=== PATIENT | female | born 2000 | race Caucasian/White ===

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

== ENCOUNTER 2018-01-11 13:38 | Emergency (ER) | payer BC ==
[2018-01-11 14:25] VITALS: BP 106/65
--- NOTE | 2018-01-11 15:29 | UC ---
Throat Pain/Nasal Isidro HPI - HPI Summary HPI Summary: 17-year-old female presents with 3 day history of sore throat. Associated with some mild nasal congestion and nausea. Denies fever, chills, dysphagia, ear pain or drainage, chest pain, shortness of breath, abdominal pain, or vomiting. - History of Current Complaint Chief Complaint: UCRespiratory Stated Complaint: SORE THROAT FEVER CHILLS Time Seen by Provider: 01/11/18 15:22 Hx Obtained From: Patient Hx Last Menstrual Period: 04/02/17 Onset/Duration: Gradual Onset, Lasting Days - 3 Severity: Moderate Pain Intensity: 8 Cough: None Associated Signs & Symptoms: Positive: Nasal Discharge. Negative: Dysphagia, Drooling, Hoarseness, Sinus Discomfort, Fever, Vomiting, Rash - Allergies/Home Medications Allergies/Adverse Reactions: Allergies Allergy/AdvReac Type Severity Reaction Status Date / Time No Known Allergies Allergy Verified 01/11/18 14:25 PMH/Surg Hx/FS Hx/Imm Hx Previously Healthy: Yes - Denies significant PMH - Surgical History Surgical History: None - Family History Known Family History: Positive: Hypertension - Social History Occupation: Student Lives: Dormitory/Roommates Alcohol Use: Occasionally Substance Use Type: None Smoking Status (MU): Never Smoked Tobacco - Immunization History Vaccination Up to Date: Yes Review of Systems Constitutional: Negative Skin: Negative Eyes: Negative ENT: Sore Throat, Nasal Discharge Respiratory: Negative Cardiovascular: Negative Gastrointestinal: Nausea Is Patient Immunocompromised?: No All Other Systems Reviewed And Are Negative: Yes Physical Exam Triage Information Reviewed: Yes Appearance: No Pain Distress, Well-Nourished Vital Signs: Initial Vital Signs Temp 98.7 F 01/11/18 14:21 Pulse 84 01/11/18 14:21 Resp 18 01/11/18 14:21 BP 106/65 01/11/18 14:21 Pulse Ox 99 01/11/18 14:21 Eyes: Positive: Conjunctiva Clear. Negative: Discharge ENT: Positive: Hearing grossly normal, Pharyngeal erythema, Nasal congestion, TMs normal, Tonsillar swelling, Tonsillar exudate, Uvula midline. Negative: Nasal drainage, Trismus, Muffled voice, Sinus tenderness Neck: Positive: Supple, Nontender, Enlarged Nodes @ - anterior cervical Respiratory: Positive: Lungs clear, Normal breath sounds, No respiratory distress Cardiovascular: Positive: RRR, No Murmur Neurological: Positive: Alert Skin Exam: Normal Diagnostics - Laboratory Diagnostic Studies Completed/Ordered: Positive rapid strep Throat Pain/Nasal Course/Dx - Course Course Of Treatment: 17 year old female with 3 day history of sore throat. Exam reveals pharyngeal erythema, tonsillar edema and exudate with anterior cervical lymphadenopathy. Rapid strep positive. Will treat with 10 day course Penicillin VK 500 mg BID and symptomatic care. Warning symptoms reviewed with patient. Verbalizes understanding and agrees with POC. - Differential Dx/Diagnosis Provider Diagnoses: Strep pharyngitis Discharge - Sign-Out/Discharge Documenting (check all that apply): Patient Departure All imaging exams completed and their final reports reviewed: No Studies - Discharge Plan Condition: Stable Disposition: HOME Prescriptions: Penicillin V Potassium 500 mg PO BID #20 tablet Patient Education Materials: Strep Throat (ED) Forms: *School Release Referrals: Radu Trivedi, SUB ACUTE CARE NURSE [Primary Care Provider] - (If symptoms perist) Additional Instructions: Your rapid strep test was performed in the clinic today was positive. Take penicillin VK 1 tablet twice a day for 10 days. Be sure to finish the entire course even if you're feeling better. Use salt water gargles several times a day. Use acetaminophen (Tylenol) or ibuprofen (Advil, Motrin) according to directions as needed for pain or fever. You may use Chloraseptic spray or Cepacol lozenges for some temporary pain relief. After you've been on your antibiotics for 2-3 days change out her toothbrush to avoid reinfection. Follow-up with your primary care provider if her symptoms persist. Seek immediate medical attention if you have a persistent fever greater than 100.5 F despite taking acetaminophen or ibuprofen, you are unable to swallow, Difficulty breathing, or any worsening of symptoms. - Billing Disposition and Condition Condition: STABLE Disposition: Home
== END 2018-01-11 15:44 | disposition home or self-care (01) ==
LOC: UCEAST 13:38
DX: J02.0 Streptococcal pharyngitis (principal)
CPT/HCPCS: 87651; 99212; G0463

== ENCOUNTER 2019-03-25 08:55 | Emergency (ER) | payer BC, OTHER ==
[2019-03-25 09:02] VITALS: BP 127/89
--- NOTE | 2019-03-25 09:06 | UC ---
Abdominal Pain Female HPI - HPI Summary HPI Summary: Patient presents to urgent care concerned his UTI. Patient states progressive for the last 5-6 days she's had urinary frequency. Patient states she feels she has to urinate immediately after urinating. Patient has any hematuria. Patient reports mild and urine stream discomfort. Patient also reports low back achiness for the last 2 days. No nausea or vomiting. No fevers, chills, rash. Patient with remote history of UTI. No vaginal discharge, itching, odor. No concern for an STI. Patient states she is due to start her period soon. Patient has been taking some Aleve for short-term relief. Patient states she did take [id number] Azo on Wednesday finish the last 1: 30 morning. Patient reports short-term relief with that. Patient's medications reviewed this visit. Patient is not immunocompromised. - History of Current Complaint Chief Complaint: UCGU Stated Complaint: URINARY ISSUE Time Seen by Provider: 03/25/19 09:04 Hx Obtained From: Patient Hx Last Menstrual Period: 02/22/19 ?: No Onset/Duration: Gradual Onset Severity Initially: Mild Severity Currently: Mild Pain Intensity: 3 Allergies/Adverse Reactions: Allergies Allergy/AdvReac Type Severity Reaction Status Date / Time No Known Allergies Allergy Verified 03/25/19 09:02 PMH/Surg Hx/FS Hx/Imm Hx Previously Healthy: Yes - Surgical History Surgical History: None - Family History Known Family History: Positive: Hypertension, Non-Contributory - Social History Occupation: Employed Part-time, Student Lives: With Family Alcohol Use: Occasionally Substance Use Type: None Smoking Status (MU): Never Smoked Tobacco - Immunization History Vaccination Up to Date: Yes Review of Systems All Other Systems Reviewed And Are Negative: Yes Constitutional: Positive: Negative Skin: Positive: Negative Eyes: Positive: Negative Genitourinary: Positive: Frequency, Urgency, Other - Mild low back pain Physical Exam - Summary Physical Exam Summary: Vital Signs Reviewed: Yes A+Ox3, no distress Eyes: Conjunctiva Clear, JAMI. EOM intact and full ENT: Hearing grossly normal TM x 2 clear, mmoist, uvula midline, no exudate, no erythema Neck: Positive: Supple Respiratory: Positive: No respiratory distress, No accessory muscle use + CTA throughout no w/r Cardiovascular: RRR nl s1, s2 no m/r CBT <2 sec abd soft + BS nd, mild suprapubic discomfort no cva no guarding, no distension Musculoskeletal Exam: DUMONT x 4 without difficulty Strength Intact, ROM Intact Neurological: Positive: Alert, + sensation throughout Psychological: Positive: Normal Response To car restorer Skin: Positive: no rash, no ecchymosis Triage Information Reviewed: Yes Vital Signs: Initial Vital Signs Temp 98.7 F 03/25/19 08:59 Pulse 86 03/25/19 08:59 Resp 16 03/25/19 08:59 BP 127/89 03/25/19 08:59 Pulse Ox 100 03/25/19 08:59 Abd Pain Female Course/Dx - Course Course Of Treatment: Patient presents urgent care with progressive urinary symptoms including frequency and mild burning at the end of micturition. Patient without any vaginal discharge, itching, odor. Patient without any fevers, low back pain. On exam vital signs are stable. Patient will appearing. Patient doesn't have any CVA tenderness palpation with mild suprapubic tenderness. Patient does have 3+ leukoesterase and blood in her urine. She is on Prempro will start Macrobid. We'll prescription for Pyridium. Hydrate. Strict return precautions discussed. Patient aware her urine will be cultured and she'll receive a call of Treatment is different. Patient comfortable and agreeable with plan. Patient declined a note for work this evening. Grossly - Differential Dx/Diagnosis Provider Diagnosis: Urinary frequency Discharge ED - Sign-Out/Discharge Documenting (check all that apply): Patient Departure All imaging exams completed and their final reports reviewed: No Studies - Discharge Plan Condition: Stable Disposition: HOME Prescriptions: Nitrofurantoin Monohyd/M-Cryst [Macrobid 100 mg Capsule] 100 mg PO BID #14 cap Phenazopyridine TAB* [Pyridium 100 mg TAB*] 100 mg PO TID PRN #9 tab PRN Reason: burning with urination Patient Education Materials: Urinary Tract Infection in Women (ED) Referrals: Radu Trivedi FUDGER [Primary Care Provider] - Additional Instructions: - stay well hydrated - drink plenty of non-alcoholic, non caffinated beverages - your urine will be further tested - if you require any changes to your treatment, we will contact you - this usually take 2 days - Contact your primary doctor to arrange a follow-up appointment next week. Contact your doctor or return with questions or concerns - Take your antibiotics exactly as prescribed until gone - Take pyridium as prescribed for discomfort. This will make your urine blaze orange - this is normal - Okay to take Aleve 2 times a day for discomfort. You may also take Tylenol every 6 hours for pain. Take with food - Call your doctor or return with questions or concerns - Billing Disposition and Condition Condition: STABLE Disposition: Home
== END 2019-03-25 09:20 | disposition home or self-care (01) ==
LOC: UCEAST 08:55
DX: R35.0 Frequency of micturition (principal); R31.9 Hematuria, unspecified; M54.5 Low back pain
CPT/HCPCS: 81003; 84702; 87077; 87086; 99212; G0463